=== PATIENT | male | born 1975 | race Caucasian/White ===

== ENCOUNTER 2024-06-26 06:27 | Day surgery (SDC) | payer BC, SELFPAY | END 2024-06-26 10:00 | disposition home or self-care (01) | LOC: GI 06:27 | PROVIDERS: ATTENDING PHYSICIAN Internal Medicine Gastroenterology | DX: Z12.11 Encounter for screening for malignant neoplasm of colon (principal); D12.3 Benign neoplasm of transverse colon; K63.5 Polyp of colon; K57.30 Diverticulosis of large intestine without perforation or abscess without bleeding; D12.8 Benign neoplasm of rectum; Q43.8 Other specified congenital malformations of intestine; Z86.0101 Personal history of adenomatous and serrated colon polyps | CPT/HCPCS: 45385; 45380; 88305 ==